=== PATIENT | male | born 1985 | race Caucasian/White ===

== ENCOUNTER 2022-04-13 16:39 | Emergency (ER) | payer OTHER ==
[~2022-04-13] VITALS: Ht 182.9 cm; Wt 117.9 kg
[2022-04-13 16:42] VITALS: BP 151/86
--- NOTE | 2022-04-13 17:23 | NUR ---
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 pt was tazed by pd during arrest, needs medical clearance at this time. denies nausea, vomiting, diarrhea. skin is flushed/warm/dry. a&o x4 with even and steady gait. lungs clear bl, heart rate even and regular. pt denies any fever, cp, sob, or cough at this time. pmh: denies allergy: amoxicillin, arithromycin med: denies
--- NOTE | 2022-04-13 18:44 | NUR ---
pt taken to us via wheelchair at this time
[2022-04-13] MEDS ORDERED: CEPH-588 PO (20:02)
--- NOTE | 2022-04-13 20:11 | NUR ---
Patient D/C to custody.
== END 2022-04-13 20:11 ==
LOC: MED 16:39
DX: L03.115 Cellulitis of right lower limb (principal); Z79.899 Other long term (current) drug therapy; Z88.1 Allergy status to other antibiotic agents; Y35.8 Legal intervention involving other specified means; Y93.89 Activity, other specified; Y92.89 Other specified places as the place of occurrence of the external cause; Y99.8 Other external cause status
CPT/HCPCS: 90471; 90715; 93971; 99284; Q0092